=== PATIENT | female | born 1935 | race Caucasian/White ===

== ENCOUNTER 2020-05-07 10:00 | Emergency (ER) | payer MEDICARE, MEDICAID ==
[~2020-05-07] VITALS: Ht 139.7 cm; Wt 45.0 kg
[~2020-05-07 10:00] MED LIST: ASPI-1497; Fluticasone Propionate BOTHNSTRLS; SULF1TAB48 PO; TIMO15DR12 EACHEYE; TRAV2.5D EACHEYE
[2020-05-07 10:56] LABS: BASOPHILS % 1.2 % (0.0-2.0); EOSINOPHILS % 5.1 % (0.0-5.0); HEMATOCRIT. 42.2 % (36.0-48.0); HEMOGLOBIN. 14.2 g/dL (12.0-16.0); MEAN CORPUSCULAR HEMOGLOBIN 31.3 pg (28.0-32.0); MEAN CORPUSCULAR VOLUME 93.1 fL (81.0-99.0); MEAN PLATELET VOLUME 9.4 fl (7.4-10.4); MONOCYTES % 6.5 % (2.0-8.0); NEUTROPHILS % 61.2 % (40.0-76.0); PLATELET 334 x1000/uL (130-400); RED BLOOD CELL COUNT 4.53 mill/uL (4.2-5.4); RED CELL DISTRIBUTION WIDTH 14.8 % (11.6-14.6)
[2020-05-07 11:04] LABS: CHLORIDE 110 mEq/L (98-107); INR 0.9; PROTHROMBIN TIME 9.9 sec (9.6-11.0)
[2020-05-07] MEDS ORDERED: BACITRACIN ZINC OINT UDPKT TOP ONE (12:45)
[2020-05-07] MEDS ORDERED: BACITRACIN/POLYMYXIN B SULFATE OINT 15GM TOP ONE (12:45)
[2020-05-07 12:55] VITALS: BP 158/60
== END 2020-05-07 13:06 | disposition home or self-care (01) ==
LOC: ER 10:10
DX: S00.83XA Contusion of other part of head, initial encounter (principal); R03.0 Elevated blood-pressure reading, without diagnosis of hypertension; W10.8XXA Fall (on) (from) other stairs and steps, initial encounter; Y93.89 Activity, other specified; Y92.89 Other specified places as the place of occurrence of the external cause; Z86.73 Personal history of transient ischemic attack (TIA), and cerebral infarction without residual deficits
CPT/HCPCS: 36415; 80053; 85025; 99284

== ENCOUNTER 2022-12-11 16:13 | Emergency (ER) | payer MEDICARE, MEDICAID ==
[~2022-12-11] VITALS: Ht 157.5 cm; Wt 61.0 kg
[~2022-12-11 16:13] MED LIST changes: -TRAV2.5D EACHEYE; +TRAV2.5D9 EACHEYE
[2022-12-11 16:14] VITALS: BP 169/94; PULSE 95; RESP 16; TEMP 96.8; O2SAT 98
== END 2022-12-11 16:27 | disposition left against medical advice (07) ==
LOC: ER 16:13
DX: R07.89 Other chest pain (principal); Z86.73 Personal history of transient ischemic attack (TIA), and cerebral infarction without residual deficits
CPT/HCPCS: 93005; 99283